=== PATIENT | male | born 1960 | race Caucasian/White ===

== ENCOUNTER 2017-06-23 23:12 | Emergency (ER) | payer BC, OTHER ==
[2017-06-24] MEDS ORDERED: Lidocaine 1% with EPINEPHrine 1:100,000 50 ML MDV SUBCUT STA (01:14)
[2017-06-24] MEDS ORDERED: Bacitracin Oint 1 GM U/D Packet TOP ONE (01:14)
--- NOTE | 2017-06-24 01:20 | EDM.PDOC ---
ED HPI GENERAL MEDICAL PROBLEM - General Chief Complaint: Laceration Stated Complaint: FELL & HIT FACE Time Seen by Provider: 06/24/17 01:05 Source of Information: Reports: Patient, Family History Limitations: Reports: No Limitations - History of Present Illness INITIAL COMMENTS - FREE TEXT/NARRATIVE: 56 yo male fell on some stairs tonight incurring a R eyebrow laceration and a 2nd laceration over the nasal bridge. No epistaxis or rhinorrhea. No LOC. Vision is normal. No neck pain. No extremity injuries. Admits to ETOH before his fall. Last tetanus 3 yrs ago. Onset Date: 06/23/17 Onset Time: 21:00 Duration: Hour(s):, Constant Location: Reports: Face Quality: Reports: Ache Severity: Mild Improves with: Reports: None Worsens with: Reports: None Context: Reports: Trauma Associated Symptoms: Reports: No Other Symptoms Treatments [employer]: Reports: Other (see below) (none) - Related Data Allergies Allergy/AdvReac Type Severity Reaction Status Date / Time No Known Allergies Allergy Verified 06/24/17 01:26 Home Meds: Home Meds NK [No Known Home Meds] 06/24/17 [History] ED ROS GENERAL - Review of Systems Review Of Systems: See Below Constitutional: Reports: No Symptoms HEENT: Reports: Other (Has to lift R upper eye lid to see due to swelling. Vision OK with this. ). Denies: Eye Pain, Nosebleed, Rhinitis Respiratory: Reports: No Symptoms Cardiovascular: Reports: No Symptoms GI/Abdominal: Reports: No Symptoms Musculoskeletal: Reports: No Symptoms Skin: Reports: Bruising (R upper eyelid), Wound (R eyebrow and nasal bridge. ) Neurological: Reports: No Symptoms Psychiatric: Reports: No Symptoms ED EXAM, SKIN/RASH Exam: See Below Exam Limited By: No Limitations General Appearance: Alert, WD/WN, No Apparent Distress Eye Exam: Bilateral Eye: Normal Inspection, PERRL Ears: Normal External Exam, Normal Canal, Normal TMs, Hearing Loss (bilat hearing aids) Nose: Normal Inspection, Normal Mucosa, No Blood Throat/Mouth: Normal Inspection, Normal Lips, Normal Oropharynx, Normal Voice, No Airway Compromise Head: Facial Swelling (R upper eyelid ecchymotic and swollen somewhat. ) Respiratory/Chest: No Respiratory Distress, No Accessory Muscle Use Cardiovascular: Regular Rate, Rhythm Extremities: Normal Inspection, Normal Range of Motion, Non-Tender Neurological: Alert, Oriented, CN II-XII Intact, Normal Cognition, No Motor/ Sensory Deficits Psychiatric: Normal Affect, Normal Mood Skin: Warm, Dry, Ecchymosis (R upper lid), Wound/Incision (R eyebrow and nasal bridge. ) Location, Skin: Face Characteristics: Linear (deep laceration over upper nose/bridge-vertical orientation. Superficial R eyebrow laceration. ) Associated features: Tenderness ED SKIN PROCEDURES - Laceration/Wound Repair Right Face Lac/Wound length In cm: 2.5 Appearance: Subcutaneous, Linear, Clean Distal NVT: Neuro & Vascular Intact Anesthetic Type: Local Local Anesthesia - Lidocaine (Xylocaine): 1% with EPI Local Anesthetic Volume: 5cc Skin Prep: Saline Saline Irrigation (cc's): 60 Exploration/Debridement/Repair: Wound Explored, Explored to Base, No Foreign Material Found Closed with: Sutures Suture Size: other (6-0) Suture Type: Nylon, Simple, Mattress Drain Placement: No Sterile Dressing Applied: Nurse Tetanus Status Addressed: Yes Complications: No Course - Vital Signs Last Recorded V/S: Last Vital Signs Temp 35.1 C L 06/24/17 00:36 Pulse 78 06/24/17 00:36 Resp 23 H 06/24/17 00:36 BP 143/83 H 06/24/17 00:36 Pulse Ox 95 06/24/17 00:36 - Orders/Labs/Meds Orders: Active Orders 24 hr Category Date Time Status Bacitracin [Bacitracin Oint 1 GM] Med 06/24/17 01:14 Once 1 dose TOP ONETIME ONE Lidocaine 1% w/EPINEPHrine [Xylocaine 1% with Med 06/24/17 01:14 Stat EPINEPHrine 1:100,000] 12 ml SUBCUT NOW STA Departure - Departure Time of Disposition: 02:00 Disposition: Home, Self-Care 01 Condition: Good Clinical Impression: Nasal laceration Qualifiers: Encounter type: initial encounter Qualified Code(s): S01.21XA - Laceration without foreign body of nose, initial encounter - Discharge Information Referrals: PCP,None [Primary Care Provider] - - My Orders Last 24 Hours: My Active Orders 06/24/17 01:14 Bacitracin [Bacitracin Oint 1 GM] 1 dose TOP ONETIME ONE Lidocaine 1% w/EPINEPHrine [Xylocaine 1% with EPINEPHrine 1:100,000] 12 ml SUBCUT NOW STA - Assessment/Plan Last 24 Hours: My Active Orders 06/24/17 01:14 Bacitracin [Bacitracin Oint 1 GM] 1 dose TOP ONETIME ONE Lidocaine 1% w/EPINEPHrine [Xylocaine 1% with EPINEPHrine 1:100,000] 12 ml SUBCUT NOW STA
== END 2017-06-24 02:05 | disposition home or self-care (01) ==
LOC: JP.ED 23:12
DX: S01.21XA Laceration without foreign body of nose, initial encounter (principal); S01.111A Laceration without foreign body of right eyelid and periocular area, initial encounter; W01.198A Fall on same level from slipping, tripping and stumbling with subsequent striking against other object, initial encounter
CPT/HCPCS: 12011; 99283-25